=== PATIENT | male | born 1945 | race Asian ===

== ENCOUNTER 2018-08-30 10:53 | Day surgery (SDC) | payer OTHER ==
[~2018-08-30 10:53] MED LIST: CEFAZOLIN 2 GM/50 ML (PMX) 50 ML IVPB; DEXAMETHASONE 4 MG/ML 1 ML INJ; LIDOCAINE 2% (SDV) 5 ML INJ; ONDANSETRON 4 MG INJ; ROCURONIUM 50 MG INJ; SOD CHLORIDE 0.9% 1,000 ML IV
[2018-08-30] MEDS ORDERED: PHENYLephrine (100 MCG/ML) 5ML SYG (16:38)
[2018-08-30] MEDS: BUPIVACAINE 0.25% (MPF) 30 ML INJ (16:49)
[2018-08-30] MEDS ORDERED: SUGAMMADEX SODIUM 200 MG/2 ML VIAL IV (16:58)
[2018-08-30] MEDS ORDERED: PROPOFOL 20 ML (17:10)
[2018-08-30] MEDS ORDERED: CEFAZOLIN 1 GM INJ (17:10)
[2018-08-30] MEDS: MEPERIDINE 25 MG INJ IV (17:28)
[2018-08-30] MEDS: METOCLOPRAMIDE 10 MG INJ IV (17:28)
[2018-08-30] MEDS ORDERED: OXYCODONE/ACETAMINOPHEN (5/325) TAB PO ×2 (17:30)
[2018-08-30] MEDS ORDERED: EPHEDrine SULFATE 50 MG/5 ML SYG IV (17:30)
[2018-08-30] MEDS ORDERED: HYDROmorphONE 1 MG/5 ML IV SYRINGE IV ×2 (17:30)
[2018-08-30] MEDS ORDERED: hydrALAzine 20 MG INJ IV (17:30)
[2018-08-30] MEDS ORDERED: LABETALOL HCL 20MG INJ IV (17:30)
[2018-08-30] MEDS ORDERED: KETOROLAC 30 MG INJ IV (17:30)
[2018-08-30] MEDS ORDERED: ONDANSETRON 4 MG INJ IV (17:30)
[2018-08-30] MEDS ORDERED: FENTAnyl 50 MCG/ML VIAL IV ×2 (17:30)
[2018-08-30] MEDS ORDERED: DIPHENHYDRAMINE 50 MG INJ IV (17:30)
[2018-08-30] MEDS ORDERED: ALBUTEROL 0.083% (NEB) 2.5 MG/3 ML AMP HHN (17:30)
[2018-08-30] MEDS: FENTAnyl 50 MCG/ML VIAL IV ×4 (17:34→17:57)
[2018-08-30] MEDS: HYDROmorphONE 1 MG/5 ML IV SYRINGE IV (18:03)
[2018-08-30] MEDS: HYDROCODONE/APAP (5/325) TAB PO (18:05)
== END 2018-08-30 19:02 | disposition home or self-care (01) ==
LOC: SDS 10:53
DX: K80.10 Calculus of gallbladder with chronic cholecystitis without obstruction (principal); I10 Essential (primary) hypertension; J44.9 Chronic obstructive pulmonary disease, unspecified
CPT/HCPCS: 47562; 88304; 93005